=== PATIENT | female | born 1975 | race Caucasian/White ===

== ENCOUNTER 2025-08-01 09:45 | Day surgery (SDC) | payer BC ==
--- NOTE | 2025-07-29 19:08 | HP ---
HISTORY OF PRESENT ILLNESS: Patient is a 49-year-old female, reports a sister who was diagnosed with colon cancer. Patient has not had any colonoscopies to date and she has no issues. PAST MEDICAL HISTORY: None. HOME MEDICATIONS: Ozempic, progesterone. ALLERGIES: None. PAST SURGICAL HISTORY: Tonsillectomy, . SOCIAL HISTORY: Current smoker. FAMILY HISTORY: Colon cancer. REVIEW OF SYSTEMS: CONSTITUTIONAL: Denies fever or chills. CHEST: Denies shortness of breath. CARDIOVASCULAR: Denies chest pain. ABDOMEN: Denies abdominal pain. PHYSICAL EXAMINATION: GENERAL: In no acute distress. CARDIOVASCULAR: Regular rate and rhythm. RESPIRATORY: Nonlabored. No shortness of breath. ABDOMEN: Soft. IMPRESSION: Family history of colon cancer, screening. PLAN: Colonoscopy with Dr. Henry Sanchez. This report was dictated for Dr. Sanchez by Bessie Martinez NP.
[2025-08-01] MEDS ORDERED: GlucaGen 1 MG IM ONE (09:46)
[2025-08-01] MEDS ORDERED: Lactated Ringers 1,000 ML IV ONE (10:02)
[2025-08-01] MEDS: Lactated Ringers 1,000 ML IV SCH (10:03)
[2025-08-01 10:19] LABS: HCG URINE TEST NEGATIVE (NEGATIVE)
[2025-08-01 10:20] VITALS: RESP 16
[2025-08-01] MEDS ORDERED: propofoL IV ONE ×2 (12:52→13:03)
[2025-08-01] MEDS ORDERED: Xylocaine-Mpf 2% 5 Ml Vial ONE (12:52)
[2025-08-01] MEDS ORDERED: Versed 2 MG/2 ML Injection ONE (12:52)
[2025-08-01] MEDS ORDERED: SUBLIMAZE 100 MCG/2 ML ONE (13:05)
[2025-08-01 13:57] VITALS: O2SAT 100
[2025-08-01 14:07] VITALS: BP 114/74; PULSE 52; TEMP 97.8
--- NOTE | 2025-08-04 20:22 | OP ---
SURGERY DATE/TIME: 08/01/2025 [id number] PREOPERATIVE DIAGNOSIS: Screening. POSTOPERATIVE DIAGNOSIS: Four polyps, 2 jars. PROCEDURES: Colonoscopy to cecum, hot polypectomy x4. SURGEON: Henry Sanchez MD. ANESTHESIA: General. COMPLICATIONS: None. CONDITION: Stable. DESCRIPTION OF PROCEDURE AND FINDINGS: Patient presents for screening. Taken to endoscopy, left lateral decubitus position. Scope introduced. Anal digital examination satisfactory. Scope introduced. Scope advanced to the cecum. Circumferential withdrawal, 4 polyps were taken; 6 mm ascending; 1.5 cm, 1 cm, and 4 cm distal sigmoid all submitted in 1 jar. Patient tolerated the procedure satisfactory. With her family history and polyps, we will place her on a 3-year followup.
== END 2025-08-01 14:10 | disposition home or self-care (01) ==
LOC: SDC 09:45
PROVIDERS: ATTEND Surgery
DX: Z12.11 Encounter for screening for malignant neoplasm of colon (principal); Z80.0 Family history of malignant neoplasm of digestive organs; Z79.899 Other long term (current) drug therapy; D12.2 Benign neoplasm of ascending colon; D12.5 Benign neoplasm of sigmoid colon